=== PATIENT | female | born 1985 | race Caucasian/White ===

== ENCOUNTER 2018-09-20 13:11 | Emergency (ER) | payer OTHER, SELFPAY ==
[2018-09-20 13:17] VITALS: BP 108/59; PULSE 80; RESP 12; TEMP 36.7; O2SAT 99; BMI 21.1
--- NOTE | 2018-09-20 13:18 | DI.RAD.S_ITS ---
PROCEDURE: XR FOOT LT MIN 3V INDICATIONS: trampoline injury and pain TECHNIQUE: 3 views of the foot were acquired. COMPARISON: None. FINDINGS: Bones: No fractures or dislocations. No suspicious bony lesions. Soft tissues: No tibiotalar joint effusion. Achilles tendon appears normal. IMPRESSION: No acute bony injuries. Dictated by: Uriah Perez M.D. on 09/20/2018 at 13:50 Approved by: Uriah Perez M.D. on 09/20/2018 at 13:52
--- NOTE | 2018-09-20 13:20 | ED.LOWEXIN ---
HPI - Extremity Injury (Lower) General Chief Complaint: Extremity Injury, Lower Stated Complaint: L FOOT/ANKLE INJURY Time Seen by Provider: 09/20/18 13:15 Source: patient Mode of arrival: ambulatory Limitations: no limitations History of Present Illness HPI Narrative: Patient is a 33-year-old female who presents with left foot pain. She did a front flip on the trampoline yesterday. She has been icing it and taking ibuprofen but still hurts to walk. Her ankle feels okay. No any injury or any other injury. Denies numbness or tingling. MD complaint: foot injury (Left) Related Data Previous Rx's Medication Instructions Recorded levofloxacin [Levaquin] 250 mg PO QDAY #3 tab 03/31/17 fluconazole [Diflucan] 150 mg PO X1 #2 tab 05/20/17 nitrofurantoin monohyd/m-cryst 100 mg PO BID 10 Days #0 cap 05/20/17 [Macrobid] Review of Systems Review of Systems GENERAL: Denies chills,fever HEENT: Denies throat pain RESPIRATORY: Denies dyspnea, cough, wheezing CARDIOVASCULAR: Denies chest pain, palpitations GASTROINTESTINAL: Denies nausea, vomiting MUSCULOSKELETAL: See HPI SKIN: No rash, no laceration, no pruritus NEUROLOGIC: Denies weakness, dizziness, headache, numbness 8 point review of systems is negative except for those stated above and HPI FOR[facility]LY [facility] Medical History Patient denies significant medical history (Acute) Social History Smoking Status: Never smoker Social History Smoking Status: Never smoker Exam Initial Vital Signs Initial Vital Signs: Vital Signs Temperature 98.1 F 09/20/18 13:17 Pulse Rate 80 09/20/18 13:17 Respiratory Rate 12 09/20/18 13:17 Blood Pressure 108/59 L 09/20/18 13:17 Pulse Oximetry 99 09/20/18 13:17 GENERAL: Well-appearing, well-nourished and in no acute distress. CARDIOVASCULAR: peripheral pulses in tact, cap refill <2 sec RESPIRATORY: No respiratory distress, speaks in full sentences without difficulty EXTREMITIES: Normal range of motion, no clubbing or edema. Neurovascularly intact Left rubber heel and sole press tender laterally continue distal pedal pulse intact ankle stable able to dorsi and plantar flex NEUROLOGICAL: Cranial nerves II through XII grossly intact. Normal gait and speech. SKIN: Warm, dry, no petechiae, no rashes or lesions. Procedures Orthopedic Splinting/Casting Injury #1: Side: left Lower Extremity Injury Location: foot Other Orthopedic Equipment: other (ortho shoe) Post splinting neuro exam: intact Post splinting vascular exam: intact Placed by: Nursing Course Orders Ordered: ED Orders 09/20/18 13:18 XR foot LT min 3V Stat Discontinued Medications Ibuprofen (Advil) 800 mg PO NOW ONE Stop: 09/20/18 13:19 Last Admin: 09/20/18 13:28 Dose: 800 mg Vital Signs - 8 hr 09/20/18 13:17 09/20/18 14:01 Temperature 98.1 F 98.4 F Pulse Rate 80 70 Respiratory Rate 12 16 Blood Pressure 108/59 L Blood Pressure [Right Arm] 105/52 L Pulse Oximetry 99 99 MDM - Extremity Injury (Lower) Imaging Data left foot Xray: Radiologist's impression: PROCEDURE: XR FOOT LT MIN 3V INDICATIONS: trampoline injury and pain TECHNIQUE: 3 views of the foot were acquired. COMPARISON: None. FINDINGS: Bones: No fractures or dislocations. No suspicious bony lesions. Soft tissues: No tibiotalar joint effusion. Achilles tendon appears normal. IMPRESSION: No acute bony injuries. Dictated by: Uriah Perez M.D. on 09/20/2018 at 13:50 Discharge Plan Departure Patient Disposition: Home Clinical Impression: Sprain of foot, left Qualifiers: Encounter type: initial encounter Qualified Code(s): S93.602A - Unspecified sprain of left foot, initial encounter Discharge Date/Time: 09/20/18 14:22 Interventions: ED Discharge Assessment Last Done: 09/20/18 14:21 Instructions: DI for Foot Sprain Activity Restrictions/Additional Instructions: *You have been diagnosed with left foot sprain *What to do: At this time x-rays negative. If he continue to have pain may require repeat x-ray in 7-10 days with her PCP. Increase activity as tolerated. May weight bear as tolerated. *Continue to take medications as directed Motrin 600 -800 mg every 8 hours if needed for pain *Follow up with your primary care provider in 2-3 days *Return to ER if you should have increased numbness tingling worsening pain or any new, worsening or concerning symptoms Prescriptions: No Action levofloxacin [Levaquin] 250 MG tablet 250 mg PO QDAY Qty: 3 RF: 0 nitrofurantoin monohyd/m-cryst [Macrobid] 100 MG capsule 100 mg PO BID 10 Days Qty: 0 RF: 0 fluconazole [Diflucan] 150 MG tablet 150 mg PO X1 Qty: 2 RF: 0 Stand Alone Forms: Work Release Note
[2018-09-20] MEDS: IBUPROFEN 400 MG TABLET 800 MG PO (13:28)
[2018-09-20 14:01] VITALS: BP 105/52; PULSE 70; RESP 16; TEMP 36.9; O2SAT 99
== END 2018-09-20 14:22 | disposition home or self-care (01) ==
PROVIDERS: Emergency Provider Emergency Medicine
DX: S93.602A Unspecified sprain of left foot, initial encounter (principal); Y93.44 Activity, trampolining
CPT/HCPCS: 73630; 99282; 99283

== ENCOUNTER 2019-06-05 16:24 | Emergency (ER) | payer OTHER, SELFPAY ==
[2019-06-05 16:25] VITALS: BP 132/75; PULSE 94; RESP 16; TEMP 36.6; O2SAT 98; BMI 23.3
[2019-06-05 18:42] LABS: Add Manual Diff / Slide Review NO; Basophils Absolute Auto 0 /uL (0-100); Basophils Percent Auto 0.2 % (0-2); Eosinophils Absolute Auto 100 /uL (0-450); Eosinophils Percent Auto 0.6 % (2-4); Hematocrit 38.5 % (36-46); Hemoglobin 13.1 g/dL (12.0-16.0); Lymphocytes Absolute Auto 1800 /uL (1100-4500); Lymphocytes Percent Auto 16.1 % (25-40); Mean Corpuscular Hemoglobin 29.7 PG (26-34); Mean Corpuscular Volume 87.2 fL (80-100); Monocytes Absolute Auto 600 /uL (0-900); Monocytes Percent Auto 5.6 % (3-14); Neutrophils Absolute Auto 8700 /uL (1500-7000); Neutrophils Percent Auto 77.5 % (50-75); Platelet Count 197 X10^3/uL (150-400); Red Blood Cell Count 4.41 X10^6/uL (4.0-5.2); Red Cell Distribution Width 12.6 % (11.6-14.8); White Blood Cell Count 11.2 X10^3/uL (4.5-11.0)
[2019-06-05 18:49] LABS: Alanine Aminotransferase 11 IU/L (<35); Albumin 3.9 g/dL (3.5-5.0); Albumin Globulin Ratio 1.2 (1.0-2.8); Alkaline Phosphatase 47 U/L (38-126); Amylase 54 U/L (30-110); Aspartate Aminotransferase 22 IU/L (14-36); BUN Creatinine Ratio 17.2 (6-22); Bilirubin Total 0.6 mg/dL (0.2-1.3); Blood Urea Nitrogen 11 mg/dL (7-17); Calcium 8.8 mg/dL (8.4-10.2); Carbon Dioxide 25 mmol/L (22-32); Chloride 105 mmol/L (98-107); Estimated Glomerular Filt Rate > 60.0 mL/min (>60); Globulin 3.2 g/dL (1.7-4.1); Glucose 98 mg/dL (70-100); HEMOLYSIS < 15 (0-50); Lipase 51 U/L (23-300); Potassium 3.7 mmol/L (3.4-5.1); Sodium 137 mmol/L (137-145); Total Protein 7.1 g/dL (6.3-8.2)
[2019-06-05 19:00] VITALS: BP 114/72; PULSE 70; RESP 18; O2SAT 98
[2019-06-05] MEDS: LIDOCAINE JELLY 2% 5 ML 1 APPLIC TOP (19:33)
--- NOTE | 2019-06-05 20:45 | ED.GIBLEED ---
HPI - GI Bleed <NEPTALI ParkinsonBC - Last Filed: 06/05/19 20:55> General Chief complaint: GI Bleed Stated complaint: rectal bleeding Time Seen by Provider: 06/05/19 17:57 Source: patient Mode of arrival: Ambulatory Limitations: no limitations History of Present Illness HPI Narrative: The patient is a 34-year-old female nonsmoker with history of hemorrhoids Who presents with a chief complaint of blood in stool since Sunday. She states she had a very large bowel movement and has a history of hemorrhoids. Since that is painful to have bowel movements and she has blood on the toilet paper when she wipes. She notes some red blood streaking on her bowel movements. She is try to soften up her bowel movements by using MiraLax. She denies any fevers nausea vomiting or diarrhea. She states that she does not have any rectal bleeding other than when she is having bowel movements. She denies any black tarry stools. She denies any fevers. She states that she is straining to have bowel movements. Patient is adamant that this started after a very large bowel movement that was painful. Related Data Home Medications Medication Instructions Recorded Confirmed norelgestromin-ethin.estradiol patch 06/05/19 [Xulane] Previous Rx's Medication Instructions Recorded hydrocortisone [Proctosol HC] 1 applictn [place] BID PRN 7 Days #28 06/05/19 gram Allergies Allergy/AdvReac Type Severity Reaction Status Date / Time No Known Drug Allergies Allergy Verified 06/05/19 16:32 Review of Systems <NEPTALI Parkinson - Last Filed: 06/05/19 20:55> Review of Systems Narrative: GENERAL: Denies chills, fatigue, malaise, fever, sweats. HEENT: Denies sinus pain, ear pain, sore throat, difficulty swallowing, dizziness. RESPIRATORY: Denies dyspnea, cough, wheezing, hemoptysis, sputum. CARDIOVASCULAR: Denies chest pain, palpitations, orthopnea, edema, GASTROINTESTINAL: See HPI : Denies dysuria, frequency, incontinence, hematuria, urinary retention. MUSCULOSKELETAL: denies weakness, joint pain, or bony pain SKIN: Denies rash, skin lesions, or other NEUROLOGIC: Denies weakness, headache, numbness, change in speech, confusion, seizures, incoordination. PSYCHIATRIC: No concerning psychosocial issues. 12 point review of systems is negative except for those stated above Patient History <LOS Parkinson - Last Filed: 06/05/19 20:55> Medical History Patient denies significant medical history (Acute) Social History Smoking Status: Never smoker Smoking Status: Never smoker alcohol intake frequency: holidays/special occasions only Substance Use Type: does not use Exam <LOS Parkinson - Last Filed: 06/05/19 20:55> Narrative Exam Narrative: GENERAL: This is a well-nourished, well-developed patient, in no acute distress HEAD: Atraumatic. Normocephalic. No temporal or scalp tenderness. EYES: Pupils equal round and reactive. Extraocular motions intact. No scleral icterus. No injection or drainage. ENT: Nose without bleeding, purulent drainage or septal hematoma. Throat without erythema, tonsillar hypertrophy or exudate. Uvula midline. Airway patent. NECK: Trachea midline. No JVD or lymphadenopathy. Supple, nontender, no meningeal signs. CARDIOVASCULAR: Regular rate and rhythm RESPIRATORY: Clear to auscultation. Breath sounds equal bilaterally. No wheezes, rales, or rhonchi. No cough. No increased respiratory effort. No accessory muscle use. GASTROINTESTINAL: Abdomen soft, non-tender, nondistended. No hepato-splenomegaly, or palpable masses. No guarding. Active bowel sounds all 4 quadrants Rectal: With Franny RN at bedside. Slight external hemorrhoid noted. No obvious external bleeding. Possible internal hemorrhoid palpated. Slight bright red blood noted on finger after exam. EXTREMITIES: No clubbing, cyanosis, or edema. No joint tenderness, effusion, or edema noted. BACK: Nontender without deformity or crepitance. No flank tenderness. NEURO: AOx3. SKIN: No rash or erythema. Initial Vital Signs Initial Vital Signs: Vital Signs Temperature 97.9 F 06/05/19 16:25 Pulse Rate 94 H 06/05/19 16:25 Respiratory Rate 16 06/05/19 16:25 Blood Pressure 132/75 06/05/19 16:25 Pulse Oximetry 98 06/05/19 16:25 <Laly Pollock MD - Last Filed: 06/06/19 03:16> Initial Vital Signs Initial Vital Signs: Vital Signs Temperature 97.9 F 06/05/19 16:25 Pulse Rate 94 H 06/05/19 16:25 Respiratory Rate 16 06/05/19 16:25 Blood Pressure 132/75 06/05/19 16:25 Pulse Oximetry 98 06/05/19 16:25 Course <LOS Parkinson - Last Filed: 06/05/19 20:55> Orders Ordered: Discontinued Medications Lidocaine HCl (Xylocaine Jelly 2%) 1 applic TOP NOW ONE Stop: 06/05/19 19:29 Last Admin: 06/05/19 19:33 Dose: 1 applic Documented by: BONY Vital Signs Vital signs: Vital Signs - 8 hr 06/05/19 16:25 06/05/19 19:00 Temperature 97.9 F Pulse Rate 94 H 70 Respiratory Rate 16 18 Blood Pressure 132/75 Blood Pressure [Right Arm] 114/72 Pulse Oximetry 98 98 <Laly Pollock MD - Last Filed: 06/06/19 03:16> Orders Ordered: Discontinued Medications Lidocaine HCl (Xylocaine Jelly 2%) 1 applic TOP NOW ONE Stop: 06/05/19 19:29 Last Admin: 06/05/19 19:33 Dose: 1 applic Documented by: BONY Vital Signs Vital signs: Vital Signs - 8 hr 06/05/19 16:25 06/05/19 19:00 Temperature 97.9 F Pulse Rate 94 H 70 Respiratory Rate 16 18 Blood Pressure 132/75 Blood Pressure [Right Arm] 114/72 Pulse Oximetry 98 98 MDM - GI Bleed <LOS Parkinson - Last Filed: 06/05/19 20:55> Lab Data Result diagrams: 06/05/19 17:00 06/05/19 17:00 Labs: Lab Results 06/05/19 06/05/19 Range/Units 17:00 17:00 WBC 11.2 H (4.5-11.0) X10^3/uL RBC 4.41 (4.0-5.2) X10^6/uL Hgb 13.1 (12.0-16.0) g/dL Hct 38.5 (36-46) % MCV 87.2 (80-100) fL MCH 29.7 (26-34) PG MCHC 34.0 (30-36) % RDW 12.6 (11.6-14.8) % Plt Count 197 (150-400) X10^3/uL Neut % (Auto) 77.5 H (50-75) % Lymph % (Auto) 16.1 L (25-40) % [place] % (Auto) 5.6 (3-14) % Eos % (Auto) 0.6 L (2-4) % Baso % (Auto) 0.2 (0-2) % Neut # (Auto) 8700 H (6178-6203) /uL Lymph # (Auto) 1800 (4297-6823) /uL [place] # (Auto) 600 (0-900) /uL Eos # (Auto) 100 (0-450) /uL Baso # (Auto) 0 (0-100) /uL Sodium 137 (137-145) mmol/L Potassium 3.7 (3.4-5.1) mmol/L Chloride 105 (98-107) mmol/L Carbon Dioxide 25 (22-32) mmol/L BUN 11 (7-17) mg/dL Creatinine 0.64 (0.52-1.04) mg/dL Estimated GFR > 60.0 (>60) mL/min BUN/Creatinine Ratio 17.2 (6-22) Glucose 98 (70-100) mg/dL Calcium 8.8 (8.4-10.2) mg/dL Total Bilirubin 0.6 (0.2-1.3) mg/dL AST 22 (14-36) IU/L ALT 11 (<35) IU/L Alkaline Phosphatase 47 (38-126) U/L Total Protein 7.1 (6.3-8.2) g/dL Albumin 3.9 (3.5-5.0) g/dL Globulin 3.2 (1.7-4.1) g/dL Albumin/Globulin Ratio 1.2 (1.0-2.8) Amylase 54 (30-110) U/L Lipase 51 (23-300) U/L MDM Narrative Medical decision making narrative: The patient is a 34-year-old female who presents with a chief complaint of a possible hemorrhoid and bright red blood by rectum only on bowel movements. She is hemodynamically stable, not tachycardic, normotensive. She is not anemic, has no leukocytosis. Exam is concerning for hemorrhoids. Patient was placed on Proctosol. I discussed at length prevention of constipation and straining as well as avoidance of lifting with the patient. She does lift heavy objects for her job, so I did give her a work note for few days off. I discussed at length the importance of following up with primary care provider. We did discuss the possibility of a CT scan, but decided to hold off per patient preference, given the fact that her lab work was normal, she does not have any fever with abdominal pain, and her exam and history correlate with hemorrhoids. Discussed come back to emergency department for any acute concerns. Patient has no questions or concerns upon discharge and states understanding return precautions as well as follow-up care. <Laly Pollock MD - Last Filed: 06/06/19 03:16> Lab Data Labs: Lab Results 06/05/19 06/05/19 Range/Units 17:00 17:00 WBC 11.2 H (4.5-11.0) X10^3/uL RBC 4.41 (4.0-5.2) X10^6/uL Hgb 13.1 (12.0-16.0) g/dL Hct 38.5 (36-46) % MCV 87.2 (80-100) fL MCH 29.7 (26-34) PG MCHC 34.0 (30-36) % RDW 12.6 (11.6-14.8) % Plt Count 197 (150-400) X10^3/uL Neut % (Auto) 77.5 H (50-75) % Lymph % (Auto) 16.1 L (25-40) % [place] % (Auto) 5.6 (3-14) % Eos % (Auto) 0.6 L (2-4) % Baso % (Auto) 0.2 (0-2) % Neut # (Auto) 8700 H (4086-9958) /uL Lymph # (Auto) 1800 (7230-8342) /uL [place] # (Auto) 600 (0-900) /uL Eos # (Auto) 100 (0-450) /uL Baso # (Auto) 0 (0-100) /uL Sodium 137 (137-145) mmol/L Potassium 3.7 (3.4-5.1) mmol/L Chloride 105 (98-107) mmol/L Carbon Dioxide 25 (22-32) mmol/L BUN 11 (7-17) mg/dL Creatinine 0.64 (0.52-1.04) mg/dL Estimated GFR > 60.0 (>60) mL/min BUN/Creatinine Ratio 17.2 (6-22) Glucose 98 (70-100) mg/dL Calcium 8.8 (8.4-10.2) mg/dL Total Bilirubin 0.6 (0.2-1.3) mg/dL AST 22 (14-36) IU/L ALT 11 (<35) IU/L Alkaline Phosphatase 47 (38-126) U/L Total Protein 7.1 (6.3-8.2) g/dL Albumin 3.9 (3.5-5.0) g/dL Globulin 3.2 (1.7-4.1) g/dL Albumin/Globulin Ratio 1.2 (1.0-2.8) Amylase 54 (30-110) U/L Lipase 51 (23-300) U/L Discharge Plan Departure Patient Disposition: Home Clinical Impression: Hemorrhoids Qualifiers: Hemorrhoid type: unspecified Qualified Code(s): K64.9 - Unspecified hemorrhoids Discharge Date/Time: 06/05/19 19:45 Instructions: Constipation (Alternative Therapy), DI for Hemorrhoids, DI for Constipation, DI for Rectal Bleeding Activity Restrictions/Additional Instructions: Thank you for trusting us with your care today. Your lab work is overall normal. Your exam and history is concerning for hemorrhoids. I sent a medication for hemorrhoids to [facility] in [place]. Please monitor for abdominal pain with fever or any acute concerns please Please work to make your stools as soft as possible and avoid weight lifting as this can worsen hemorrhoids. I suggest docusate, senna, MiraLax. It is important that you not strain to have bowel movements. Prescriptions: New hydrocortisone [Proctosol HC] 2.5 % cream with perineal applicator 1 applictn TX BID PRN (Reason: hemorrhoids) 7 Days Qty: 28 RF: 0 No Action Xulane 150-35 mcg/24 hr patch weekly RF: 0 Referrals: Gruenwald,Rika, CATH LAB MANAGER [Non-Staff] -
== END 2019-06-05 19:45 | disposition home or self-care (01) ==
PROVIDERS: Emergency Provider Nurse Practitioner Family
DX: K64.9 Unspecified hemorrhoids (principal); K59.00 Constipation, unspecified
CPT/HCPCS: 80053; 82150; 83690; 85025; 99282; 99283

== ENCOUNTER → 2021-01-06 16:30 | Outpatient (CLI) | payer OTHER, SELFPAY ==
[2021-01-06 18:20] LABS: HCG Quantitative /Beta subunit 34315 mIU/mL
== END ==
PROVIDERS: Referring Provider Obstetrics & Gynecology; Visit Provider Obstetrics & Gynecology
DX: O26.851 Spotting complicating pregnancy, first trimester (principal)
CPT/HCPCS: 36415; 84702

== ENCOUNTER → 2021-01-20 09:42 | Outpatient (CLI) | payer OTHER, SELFPAY ==
[2021-01-20 10:12] LABS: COVID19 -Nasal RAPID Negative (Negative)
== END ==
PROVIDERS: Referring Provider Obstetrics & Gynecology; Visit Provider Obstetrics & Gynecology
DX: Z01.812 Encounter for preprocedural laboratory examination (principal); Z20.822 Contact with and (suspected) exposure to COVID-19
CPT/HCPCS: 87635

== ENCOUNTER 2021-01-20 09:50 | Day surgery (SDC) | payer OTHER, SELFPAY ==
[2021-01-19 07:43] VITALS: BMI 23.8
--- NOTE | 2021-01-20 | PATH_ITS ---
[facility] Accession Number: [id number] . 01 Material submitted: . product of conception - PRODUCTS OF CONCEPTION . 01 Clinical history: . SUCTION D/C . 02 Diagnosis: A. Products of Conception, Removal: Immature chorionic villi with hydropic change. No evidence of significant atypia or proliferation. Background decidua, gestational endometrium, fibrin, and necroinflammatory debris. MRV 01/25/2021 0023 Local . 02 Electronically signed: . Becky Barker MD, Pathologist NPI- [id number] . 01 Gross description: . The specimen is received in formalin, labeled products of conception and consists of multiple pandya-pink fragments of soft tissue measuring 6.0 x 5.0 x 2.0 cm in aggregate. Chorionic villi are identified. No parts are identified. Facilities Maintenance Supervisor sections are submitted in cassettes A1-A2. ([id number]) /MRV 01/21/2021 1032 Local . 02 Pathologist provided ICD-10: O02.1 . 02 CPT . 622606 Performed at: 01 [facility] [address], [place], [place] [id number] MD Tavares Hodge MD Phone: [phone] Performed at: 02 [facility] [address] [place], [place] [id number] MD Rika Rinaldi MD Phone: [phone]
[2021-01-20] MEDS: LACTATED RINGERS 1,000 ML 100 ML IV (10:22)
[2021-01-20 10:23] VITALS: BP 100/67; PULSE 66; RESP 14; TEMP 36.6; O2SAT 100; BMI 23.8
--- NOTE | 2021-01-20 11:27 | PM.HP.1 ---
History of Present Illness History of Present Illness Date Patient Seen: 01/20/21 Time Patient Seen: 11:27 Chief complaint: SUCTION D&C Narrative: Patient is a 35-year-old 5 para 4 who presents for suction D&C due to a missed that she has not passed on her own. Patient History Medical History (Updated 06/20/19 @ 00:00 by ) Patient denies significant medical history Family & Social History Social History: household members significant other Tobacco & Substance use: Smoking Status Never smoker alcohol intake current alcohol intake frequency holiday/special occasion Substance Use Type does not use Meds Home Medications and Allergies Home Medications Medication Instructions Recorded Confirmed Type prenat.vits,adin,mxs-ycdf-xaxea 1 tab PO DAILY 01/06/21 01/19/21 History Allergies Allergy/AdvReac Type Severity Reaction Status Date / Time No Known Drug Allergies Allergy Verified 01/06/21 17:04 Exam Vital Signs (past 8 hours): - 01/20/21 10:23 Temperature 97.9 F Pulse Rate 66 Respiratory Rate 14 Blood Pressure 100/67 Pulse Oximetry 100 Oxygen Delivery Method Room Air Narrative Exam Narrative: HEENT: No thyromegaly, no anterior cervical or supraclavicular lymphadenopathy. Lungs:Clear to auscultation bilaterally, no wheezes. Cardiovascular: Regular rate and rhythm, no murmurs, rubs, or gallops. Abdomen: No scars. No hepatosplenomegaly. No masses palpable. External genitalia: Normal Vagina: Small amount of blood Cervix: Normal, parous Bimanual exam: 7 Week size uterus. Mobile. Assessment & Plan Assessment & Plan narrative: Assessment: 35-year-old 5 para 4 with a missed at 6 weeks gestation Plan: Suction D&C The risks, benefits, and alternatives to the procedure were explained to the patient. The risks including bleeding, infection, and uterine perforation. She understands these risks and agrees to proceed. A full par Q was held and consent form was signed. COVID-19 COVID-19 status: Negative Result date/Date tested (Pos, Neg/Pending): 01/20/21 Time Spent With Patient Time with patient: less than 30 minutes Critical Care time: I spent a total of [] minutes of critical care time on this patient's care today; this time is exclusive of procedural time.
--- NOTE | 2021-01-20 11:29 | PM.PREOP ---
Pre-operative Note COVID-19 COVID-19 status: Negative Interval Note History & Physical reviewed/Exam performed by Physician: Yes Changes to H&P: No H&P completed within 30 days and has changed as indicated here:: 01/20/21
--- NOTE | 2021-01-20 11:42 | SUR.OPER ---
Lithotomy on padded OR bed, head on pillow, arms secured on padded arm boards at <90 degrees abduction. Legs secured in padded yellow fins stirrups.
[2021-01-20 11:55] VITALS: BP 84/47; PULSE 55; RESP 12; TEMP 36.2; O2SAT 99
[2021-01-20 12:00] VITALS: BP 83/46; PULSE 55; RESP 14; O2SAT 98
--- NOTE | 2021-01-20 12:01 | PM.GYNOP.1 ---
Operative Date/Time/Diagnoses Date of procedure: 01/20/21 Time of procedure: 12:01 Pre-op diagnosis: Missed at 6 weeks Post-op diagnosis: same Procedure & Clinicians Procedure: Procedures Operation Date: 01/20/21 10:45 Actual Procedure Side Surgeon lizzy Banda MD Indications: Missed at 6 weeks gestation Surgeon: Izabel Banda Anesthesia Type: General (LMA) Operative Notes Findings: 7 week size anteverted uterus Large amount of products of conception Closure Type: not applicable Specimen(s): products of conception Estimated blood loss (mL): 50 Blood products transfused: none Procedure in detail: After informed consent was obtained, the patient was taken to the operating room and placed in the dorsal supine position. After adequate LMA general anesthesia was achieved, she was placed in the dorsal lithotomy position, and prepped and draped in the usual sterile fashion. A time-out was performed. A bivalve speculum was placed into the vagina and the anterior lip of the cervix was grasped with a single-tooth tenaculum. The cervical os was sequentially dilated to the # 7 Hegar dilator. The # 7 plastic curved curette passed easily into the endometrial cavity. Several passes with suction revealed a large amount of tissue and fluid. On the third pass there was blood only. Gentle sharp curettage was performed yielding minimal amount tissue. One more pass with suction revealed blood only. The instruments were removed from the uterus. The single-tooth tenaculum was removed from the anterior lip of the cervix. The bivalve speculum was removed from the vagina. Sponge, lap, and instrument counts were correct x2. The patient tolerated the procedure well, and was taken to PACU in stable condition. Complications: none Post-operative Condition: stable Disposition: PACU Plan for aftercare: Home after recovery
[2021-01-20 12:05] VITALS: BP 87/65; PULSE 73; RESP 14; O2SAT 100
[2021-01-20 12:11] VITALS: BP 103/56; PULSE 64; RESP 14; O2SAT 100
== END 2021-01-20 12:51 | disposition home or self-care (01) ==
PROVIDERS: PCP Obstetrics & Gynecology; Referring Provider Obstetrics & Gynecology; Visit Provider Obstetrics & Gynecology
PROC: (CPT 58120; principal; 2021-01-20 10:45)
DX: O02.1 Missed abortion (principal); Z3A.01 Less than 8 weeks gestation of pregnancy; Z20.822 Contact with and (suspected) exposure to COVID-19; Z01.812 Encounter for preprocedural laboratory examination
CPT/HCPCS: 59820; 87635; J1100; J1885; J2405; J2704; J3010

== ENCOUNTER → 2023-10-04 10:03 | Outpatient (CLI) | payer OTHER, MEDICAID, SELFPAY | PROVIDERS: PCP Obstetrics & Gynecology; Visit Provider Physician Assistant | DX: R30.0 Dysuria (principal) | CPT/HCPCS: 87077; 87086; 87147 ==

== ENCOUNTER → 2023-11-05 07:45 | Outpatient (CLI) | payer OTHER, MEDICAID, SELFPAY ==
[2023-11-05 09:32] LABS: Glucose Fasting 82 mg/dL (70-100)
[2023-11-05 10:14] LABS: Glucose 1 Hour 102 mg/dL (70-170)
[2023-11-05 10:21] LABS: Glucose Tol Interpretation INTERPRETATION
[2023-11-05 11:28] LABS: Glucose 2 Hour 93 mg/dL (70-140)
== END ==
PROVIDERS: Referring Provider Nurse Practitioner Obstetrics & Gynecology; Visit Provider Nurse Practitioner Obstetrics & Gynecology
DX: Z34.90 Encounter for supervision of normal pregnancy, unspecified, unspecified trimester (principal); Z13.1 Encounter for screening for diabetes mellitus; Z3A.16 16 weeks gestation of pregnancy
CPT/HCPCS: 36415; 82951; 82952

== ENCOUNTER → 2023-12-10 07:52 | Outpatient (CLI) | payer OTHER, MEDICAID, SELFPAY ==
--- NOTE | 2023-12-10 | DI.US.S_ITS ---
PROCEDURE: US OB >= 14 WEEKS FETUS INDICATIONS: ANATOMY SCAN OUTSIDE/PRIOR DATING DATA: Last menstrual period (LMP): 07/12/2023 LMP-based estimated date of delivery (CHARLIE): 04/17/2024 TECHNIQUE: Real-time scanning was performed of the fetus, with image documentation and biometric measurements. Endovaginal scanning: Not performed COMPARISON: None. FINDINGS: General: A single living intrauterine gestation is present. Presentation: Variable Placenta: Placental position is anterior, without previa. Amniotic fluid index: 17.2 cm, normal range is 5-24 cm. Single deepest vertical pocket is 5.6 cm. heart rate: 157 beats per minute. Maternal cervical canal: Closed and measures 4.1 cm long. Normal lower limit is 2.5 cm. biometrics: Biparietal diameter: 4.9 cm, 20 weeks, 6 days. Head circumference: 17.8 cm, 20 weeks, 2 days. Abdominal circumference: 16.4 cm, 21 weeks, 3 days. Femur length: 3.3 cm, 20 weeks, 1 day Clinically estimated gestational age: 20 weeks, 2 days Composite gestational age from present scan: 20 weeks, 5 days Estimated weight and percentile: 380 g, 75% Anatomic survey: Neuro: Ventricles are non-dilated at less than 10 mm. Cisterna magna is normal at 3-11 mm. Cerebellum is normal in size and morphology. Nuchal skin fold: Normal at less than 6 mm between 14-21 weeks gestational age. Face: Nose and lips, facial profile are normal. Spine: No evidence for spina bifida. Heart: 4-chambered heart is present, with normal ventricular outflow tracts. Diaphragm: Diaphragm is intact. Stomach: Left-sided stomach is present. Kidneys: No hydronephrosis. Normal is less than 5 mm in 2nd trimester, less than 7 mm in 3rd trimester. Cord: 3-vessel cord has orthotopic insertion. Bladder: Normal in size. Extremities: All 4 extremities identified. IMPRESSION: 1. Single live intrauterine gestation with fetus in variable presentation. heart rate is 157 beats per minute. Normal GERALDINE at 17.2 cm. Estimated gestational age based on current study is 20 weeks, 5 days. Estimated weight is 75%. 2. Normal anatomic survey. We strive to produce accurate, complete, and clear reports of imaging services. To assist us in improving patient care, this report was composed using standard report templates and voice recognition software. Therefore, it may contain abnormal punctuation, insertions and/or omissions. Occasional wrong-word or sound-alike substitutions may occur. Though we review the report and make efforts to correct it, we do recommend that the report be read carefully in proper context to recognize any text inaccuracies. Dictated by: Papi Ferro M.D. on 12/10/2023 at 11:47 Approved by: Papi Ferro M.D. on 12/10/2023 at 11:49
== END ==
PROVIDERS: Referring Provider Nurse Practitioner Obstetrics & Gynecology; Visit Provider Nurse Practitioner Obstetrics & Gynecology
DX: Z34.92 Encounter for supervision of normal pregnancy, unspecified, second trimester (principal); Z3A.20 20 weeks gestation of pregnancy
CPT/HCPCS: 76811

== ENCOUNTER 2023-12-15 21:13 | Observation (INO) | payer OTHER, MEDICAID, SELFPAY ==
--- NOTE | 2023-12-15 21:40 | DI.US.S_ITS ---
PROCEDURE: US RENAL COMPLETE INDICATIONS: RLQ Pain, radiating to back TECHNIQUE: Real-time scanning was performed of the kidneys and bladder, with image documentation. COMPARISON: [facility], US, RENAL COMPLETE, 06/08/2017, 11:05. FINDINGS: Kidneys: Kidneys are normal in size. Right kidney measures 10.8 cm long; left kidney measures 10.3 cm long. Right renal cortical thickness is 1.3 cm; left renal cortical thickness is 1.4 cm. Renal cortical echotexture is normal. Moderate to severe right-sided hydronephrosis. No suspicious solid mass lesions. Bladder: Pre-void bladder volume is 81 mL. Post-void residual is 0 mL. Pre-void images demonstrate no intraluminal masses or stones. On pre-void images, left ureteral jets are noted with color Doppler interrogation. (Of note, ureteral jets may not be detectable in up to 25% of cases due to insufficient differences in specific gravity between ureteral and bladder urine). Miscellaneous: No free pelvic fluid. IMPRESSION: Moderate to severe right hydronephrosis Approved by: Paulo Messer M.D. on 12/15/2023 at 22:28
[2023-12-15 21:44] LABS: Appearance Urine UA CLEAR; Bilirubin Urine UA NEGATIVE (NEGATIVE); Color Urine UA YELLOW; Glucose Urine UA NEGATIVE (Negative); Ketones Urine UA NEGATIVE (NEGATIVE); Leukocyte Esterase Urine UA 2+ (NEGATIVE); Nitrite Urine UA NEGATIVE (Negative); Occult Blood Urine UA NEGATIVE (Negative); Protein Urine UA NEGATIVE (Negative); Specific Gravity Urine UA <=1.005 (1.000-1.035); Urobilinogen Urine UA 0.2 E.U./dL (0.2)
--- NOTE | 2023-12-15 21:53 | PM.OBTRLD ---
Visit Information Visit Information Date of evaluation: 12/15/23 Primary OB Provider: Cora Alston Reason for Evaluation: Yes other Comments/Additional reasons for admission: 38 yo at 21w 0d by LMP concordant with 9wk US presents to the ED for evaluation of RLQ and right sided back pain. The pain started this morning and has progressively gotten worse throughout the day. The pain is sharp and intermittent, beginning in her right lower quadrant and wrapping around to her back. Described as a hot poker. Nauseous and unable to eat today because of the pain. No fever or chills. Her last BM was yesterday but it was not normal; it was felton. She took a stool softener with no relief. Has not taken any other medication for pain. She gets some relief after voiding but does not have any burning, urgency or frequency with urination. She has not had any vaginal bleeding, leaking of fluid, or pain that she would describe as cramping or contractions. She has felt good movement. Has had a kidney stone before and is unsure if it was similar to this pain. Vital Signs Vital Signs: BP: 121/67 HR: 78 T:36.4C RR: 18 PFSH Medical History (Updated 12/15/23 @ 23:52 by Cora Alston CNM) Nephrolithiasis MRSA carrier Low back pain Cellulitis of knee, right Surgical History (Updated 12/15/23 @ 23:52 by Cora Alston CNM) History of loop electrical excision procedure (LEEP) Social History household members: significant other Smoking Status: Never smoker alcohol intake: current Review of Systems Review of Systems ROS: Yes All systems reviewed with the patient and are negative except as otherwise documented Gastrointestinal Gastrointestinal: Reports abdominal pain, Reports constipation and Reports nausea Comments: RLQ pain that radiates to R lower back x1 day. Last BM yesterday but it was felton Genitourinary Comments: She has not had any helen blood in her urine, no frequency, no burning. Some relief from pain after void. Exam Const General: cooperative and in distress Nutritional Appearance: average body habitus Orientation: alert, awake, oriented to person, oriented to place and oriented to time Resp Effort & Inspection: normal respiratory effort and able to speak in complete sentences Cardio Rate: regular rate Rhythm: regular rhythm GI Palpation: guarding and tender Other: Gravid uterus, appropriate size for 21wk EGA Psych Appearance: grossly normal Objective Imaging Renal US: Radiologist's impression: PROCEDURE: US RENAL COMPLETE INDICATIONS: RLQ Pain, radiating to back TECHNIQUE: Real-time scanning was performed of the kidneys and bladder, with image documentation. COMPARISON: [facility], US, RENAL COMPLETE, 06/08/2017, 11:05. FINDINGS: Kidneys: Kidneys are normal in size. Right kidney measures 10.8 cm long; left kidney measures 10.3 cm long. Right renal cortical thickness is 1.3 cm; left renal cortical thickness is 1.4 cm. Renal cortical echotexture is normal. Moderate to severe right-sided hydronephrosis. No suspicious solid mass lesions. Bladder: Pre-void bladder volume is 81 mL. Post-void residual is 0 mL. Pre-void images demonstrate no intraluminal masses or stones. On pre-void images, left ureteral jets are noted with color Doppler interrogation. (Of note, ureteral jets may not be detectable in up to 25% of cases due to insufficient differences in specific gravity between ureteral and bladder urine). Miscellaneous: No free pelvic fluid. IMPRESSION: Moderate to severe right hydronephrosis Approved by: Paulo Messer M.D. on 12/15/2023 at 22:28 Labs 12/15/23 21:48 12/15/23 21:48 Labs: Laboratory Results - last 24 hr 12/15/23 21:23 Urine Color Yellow Urine Appearance Clear Urine pH 7.0 Ur Specific [place] <=1.005 Urine Protein Negative Urine Glucose (UA) Negative Urine Ketones Negative Urine Occult Blood Negative Urine Nitrate Negative Urine Bilirubin Negative Urine Urobilinogen 0.2 Ur Leukocyte Esterase 2+ H Evaluation Evaluation Baseline heart rate: 160 Comments: 10 wk Anatomy US performed on 12/11/23, normal Diagnosis, Plan/Disposition Final Diagnosis (1) Nephrolithiasis: Status: Acute (2) Constipation: Status: Acute Plan/Disposition Plan: Discussed HPI with [facility] . Send home with strainer, nausea and pain meds. Treat with with antibiotics for UTI due to suspicion of UTI and kidney stone. Encouraged continued use of stool softeners and OTC enema if constipation persists. Reviewed return precautions.
[2023-12-15] MEDS: LACTATED RINGERS 1,000 ML 1000 ML IV (21:59)
[2023-12-15] MEDS: MORPHINE 4 MG/ML INJ IV ×2 (21:59→22:53)
[2023-12-15 22:02] LABS: Add Manual Diff / Slide Review NO; Basophils Absolute Auto 100 /uL (0-100); Basophils Percent Auto 0.6 % (0-2); Eosinophils Absolute Auto 0 /uL (0-450); Eosinophils Percent Auto 0.4 % (2-4); Hematocrit 37.2 % (36-46); Lymphocytes Absolute Auto 2000 /uL (1100-4500); Lymphocytes Percent Auto 19.8 % (25-40); Mean Corpuscular HGB Conc 34.8 % (30-36); Monocytes Absolute Auto 600 /uL (0-900); Monocytes Percent Auto 6.1 % (3-14); Neutrophils Absolute Auto 7400 /uL (1500-7000); Neutrophils Percent Auto 73.1 % (50-75); Platelet Count 221 X10^3/uL (150-400); Red Blood Cell Count 4.18 X10^6/uL (4.0-5.2); Red Cell Distribution Width 13.3 % (11.6-14.8); White Blood Cell Count 10.2 X10^3/uL (4.5-11.0)
[2023-12-15 22:10] LABS: Bacteria Urine Few (2-10); Culture Indicated Urine Specimen Cultured; RBC Urine None Seen (0-5/HPF); Squamous Epithelial Cell Urine 0-1 /HPF (0-5/HPF); Urine Volume 10mL (spun); WBC Urine 1-5/HPF (0-5/HPF)
[2023-12-15 22:24] LABS: Alanine Aminotransferase 23 IU/L (<35); Albumin 3.5 g/dL (3.5-5.0); Albumin Globulin Ratio 1.3 (1.0-2.8); Alkaline Phosphatase 50 U/L (38-126); Aspartate Aminotransferase 25 IU/L (14-36); BUN Creatinine Ratio 16.4 (6-22); Bilirubin Total 0.5 mg/dL (0.2-1.3); Blood Urea Nitrogen 9 mg/dL (7-17); Carbon Dioxide 22 mmol/L (22-32); Chloride 107 mmol/L (98-107); Estimated Glomerular Filt Rate > 60 mL/min (>60); Globulin 2.8 g/dL (1.7-4.1); Glucose 99 mg/dL (70-100); HEMOLYSIS < 15 (0-50); Potassium 3.7 mmol/L (3.4-5.1); Sodium 134 mmol/L (137-145); Total Protein 6.3 g/dL (6.3-8.2)
[2023-12-15] MEDS: AMOXICILLIN/CLAV 875/125 MG 1 TAB PO (23:49)
[2023-12-15] MEDS: PROMETHAZINE 25 MG TABLET PO (23:50)
[2023-12-15] MEDS: HYDROCODONE/ACET 5/325 PREPACK 1 BOTTLE MISC (23:50)
== END 2023-12-15 23:59 | disposition home or self-care (01) ==
LOC: LABOR 21:17
PROVIDERS: Admitting Provider Nurse Practitioner Obstetrics & Gynecology; Referring Provider Nurse Practitioner Obstetrics & Gynecology; Visit Provider Nurse Practitioner Obstetrics & Gynecology
DX: O99.891 Other specified diseases and conditions complicating pregnancy (principal); N20.0 Calculus of kidney; K59.00 Constipation, unspecified; Z3A.21 21 weeks gestation of pregnancy
CPT/HCPCS: 76770; 80053; 81003; 81015; 85025; 87077; 87086; 96360; G0378; G0379; J2270

== ENCOUNTER 2024-07-11 06:29 | Day surgery (SDC) | payer OTHER, SELFPAY ==
[2024-07-07 12:57] VITALS: BMI 25.2
[2024-07-11] VITALS (7 sets, daily range): BP systolic 89–108; BP diastolic 59–81; PULSE 63–84; RESP 14–19; TEMP 36.1–36.5; O2SAT 98–100; BMI 25.2
--- NOTE | 2024-07-11 | PATH_ITS ---
[facility] Accession Number: [id number] No. of containers..02 Tissue . 01 Material submitted: . PART A: cervix - SUPERIOR LEEP PART B: cervix - INFERIOR LEEP . 01 Diagnosis: A. SUPERIOR LEEP: Cervical transformation zone mucosa with focal high-grade squamous intraepithelial lesion (DREW-2/ moderate dysplasia) involving endocervical glands. Resection margins are negative for high-grade dysplasia. No malignancy. . B. INFERIOR LEEP: Small focus of cauterized ectocervical mucosa with mild atypia suggestive but not diagnostic of low-grade squamous intraepithelial lesion (DREW-1/ mild dysplasia). No high grade dysplasia identified. No malignancy. [facility] 07/15/2024 1025 Local . 01 Electronically signed: . Nadeen Patel MD, Pathologist NPI- [id number] . 01 Gross description: . A. Received in formalin, labeled with two identifiers and superior LEEP, is an unoriented linear fragment of cervix measuring 1.4 x 0.8 x 0.6 cm with pink-pandya, finely granular ectocervix. The margin is inked blue. The specimen is serially sectioned and submitted entirely in cassette A1. B. Received in formalin, labeled with two identifiers and inferior LEEP, is an unoriented linear fragment of cervix measuring 1.2 x 0.6 x 0.4 cm with pink-pandya, finely granular ectocervix. The margin is inked green. The specimen is serially sectioned and submitted entirely in cassette B1. ([id number]) /[facility] 07/12/2024 1018 Local . 01 Microscopic: . A. A p16 immunostain is non contributory as the focus of interest is not present on the immunostained slide , but is present on the deeper levels. Controls stain appropriately. . 01 Pathologist provided ICD-10: N87.0, N87.1 . 01 CPT . 682908, 156382, [id number] Specimen Comment: A courtesy copy of this report has been sent to [facility] Pathology Performed at: [address] [address], [place], [place] [id number] MD Tavares Hodge MD Phone: [phone]
[2024-07-11] MEDS: LACTATED RINGERS 1,000 ML 42 ML IV (07:02)
[2024-07-11] MEDS: ACETAMINOPHEN 325 MG TABLET 975 MG PO (07:04)
--- NOTE | 2024-07-11 07:37 | PM.GYNHP.1 ---
History of Present Illness History of Present Illness Narrative: Rika Suarez is a 39 year old female presenting for planned LEEP procedure due to DREW 2. She has no new concerns today. COUNT INCLUDES THE [facility] Medical History Nephrolithiasis MRSA carrier Low back pain Cellulitis of knee, right Surgical History Hx of dilation and curettage (01/20/21) History of loop electrical excision procedure (LEEP) Social History household members: significant other Smoking Status: Never smoker alcohol intake: current Meds Home Medications and Allergies Allergies Allergy/AdvReac Type Severity Reaction Status Date / Time No Known Drug Allergies Allergy Verified 07/11/24 07:00 Review of Systems Review of Systems ROS: Yes All systems reviewed with the patient and are negative except as otherwise documented Exam Vital Signs (past 8 hours): - 07/11/24 07:06 Temperature 97.7 F Pulse Rate 69 Respiratory Rate 14 Blood Pressure 108/81 Pulse Oximetry 100 Oxygen Delivery Method Room Air Oxygen Delivery Method Room Air Const General: healthy appearing, comfortable and No acute distress Resp Effort & Inspection: normal respiratory effort and able to speak in complete sentences Skin General: no rashes or lesions noted Neuro Cognition: normal cognition Speech: speech normal Psych Mood: congruent mood Affect: normal affect Assessment & Plan Assessment and plan (1) DREW II (cervical intraepithelial neoplasia II): Status: Acute Assessment & Plan narrative: 39yo F with hx of DREW 2 on recent biopsy, presenting today for LEEP. We reviewed risk/benefit of the procedure, and postop expectations. All her questions were answered at this time. -plan for same day surgery -follow-up once pathology results are available Surgery consent We discussed the risks/benefits/alternatives to the proposed procedure, to include but not limited to: -risk of bleeding, requiring medications, blood products, or other procedures as indicated -risk of infection, requiring prolonged hospital stay or other procedures -risk of injury to other structures, including bowel, bladder, blood vessels, nerves, etc. which may also require additional procedures -risk of adverse reaction to anesthesia or medications -risk of venous thromboembolism and associated sequelae -risk of rare complications such as cardiac arrest, or extremely rarely, Patient is aware of the risks, and desires to proceed with planned surgical procedure. Time-Based Coding :: [TOTAL MINUTES] spent with patient and on the chart (including review of chart, obtaining history, exam, reviewing outside data, placing orders, documenting exam and treatment plan, and counseling patient) on [DATE].
--- NOTE | 2024-07-11 08:02 | SUR.OPER ---
Lithotomy on padded OR bed, head on pillow, arms secured on padded arm boards at <90 degrees abduction. Legs secured in padded yellow fins stirrups.
[2024-07-11] MEDS: FERRIC SUBSULFATE 8 ML SOLUTION TOP (08:10)
--- NOTE | 2024-07-11 08:14 | PM.OP.1 ---
Operative Date/Time/Diagnoses Date of procedure: 07/11/24 Time of procedure: 07:45 Pre-op diagnosis: DREW II Post-op diagnosis: same Procedure & Clinicians Procedure: Loop electrode excisional procedure Same procedure as scheduled: Yes Indications: 39yo F with history of cervical dysplasia, now with recent biopsy showing DREW II. She has no further childbearing planned, thus was counseled and consented for repeat LEEP. Surgeon: Bonita Duarte Click Yes if Unassisted: Yes Anesthesia Type: General Operative Notes Findings: Cervix with prior LEEP changes. IUD strings visualized. Specimen(s): other (superior LEEP, inferior LEEP) Estimated Blood Loss (mL): 1 Blood products transfused: none Procedure in detail: The risks, benefits, indications and alternatives of the procedure were reviewed with the patient and informed consent was obtained. The pt was taken to the operating room where general anesthesia was obtained without difficulty. The pt was then placed in the low lithotomy position using gel-padded Chip stirrups. SCDs were placed bilaterally for VTE prophylaxis. The pt was then prepped and draped in the sterile fashion. A sterile, coated speculum was placed into the vagina and the cervix was visualized. A 0.5 x 0.5cm LEEP radius electrode was used to excise the ectocervix in 2 specimens to avoid cutting the IUD strings. All tissues were sent to pathology for review. One IUD string was noted to be cut. Hemostasis was acheived with electrocautery using the Roller Ball electrode. Monsel's solution was then applied with excellent hemostasis noted. All instruments were then removed from the vagina. At the completion of the case the sponge and needle counts were correct x 2. The patient tolerated the procedure well and was taken to the PACU in stable condition. Complications: none Post-operative Condition: stable Disposition: PACU Plan for aftercare: Discharge home once meeting PACU criteria.
[2024-07-11] MEDS: OXYCODONE IR 5 MG TABLET PO (08:37)
== END 2024-07-11 09:20 | disposition home or self-care (01) ==
PROVIDERS: Referring Provider Student in an Organized Health Care Education/Training Program; Visit Provider Student in an Organized Health Care Education/Training Program
PROC: 0UBC7ZZ Excision of Cervix, Via Natural or Artificial Opening (ICD-10-PCS; CPT 57522; principal; 2024-07-11 07:45)
DX: N87.1 Moderate cervical dysplasia (principal)
CPT/HCPCS: 57522; A9270; J2250; J2704; J3010

== ENCOUNTER → 2025-02-25 17:53 | Outpatient (CLI) | payer SELFPAY | PROVIDERS: Referring Provider Nurse Practitioner Family; Visit Provider Nurse Practitioner Family | DX: K21.9 Gastro-esophageal reflux disease without esophagitis (principal) | CPT/HCPCS: 83013 ==